=== PATIENT | female | born 1975 | race African-American/Black ===

== ENCOUNTER 2018-03-07 00:27 | Emergency (ER) | payer BC ==
[~2018-03-07] VITALS: Ht 175.3 cm; Wt 108.0 kg
[2018-03-07 00:41] VITALS: BP 171/90
[2018-03-07 01:19] LABS: BASO # 0.1 x10^3/uL (0.0-0.2); BASO % 1 % (0-3); EOS # 0.2 x10^3/uL (0.0-0.7); EOS % 2 % (0-3); HEMATOCRIT 34.9 % (36.0-47.0); HEMOGLOBIN 11.5 g/dL (12.0-15.5); LYMPH # 3.2 x10^3/uL (1.0-4.8); LYMPH % 29 % (24-48); MEAN CORPUSCULAR HEMOGLOBIN 27 pg (25-35); MEAN CORPUSCULAR HGB CONC 33 g/dL (31-37); MEAN CORPUSCULAR VOLUME 81 fL (79-100); MONO # 0.8 x10^3/uL (0.0-1.1); MONO % 7 % (0-9); NEUT # 6.9 x10^3uL (1.8-7.7); NEUT % 62 % (31-73); PLATELET COUNT 382 x10^3/uL (140-400); RED CELL DISTRIBUTION WIDTH 15.4 % (11.5-14.5); WHITE BLOOD COUNT 11.2 x10^3/uL (4.0-11.0)
[2018-03-07] MEDS ORDERED: ASPIRIN CHEWABLE 81 MG TABLET. PO ONE (01:30)
[2018-03-07 01:32] LABS: CREATININE 0.8 mg/dL (0.6-1.0); GFR 94.3; POTASSIUM 3.5 mmol/L (3.5-5.1)
[2018-03-07 01:37] LABS: ALBUMIN 3.3 g/dL (3.4-5.0); ALBUMIN/GLOBULIN RATIO 0.8 (1.0-1.7); MAGNESIUM 1.8 mg/dL (1.8-2.4); TOTAL BILIRUBIN 0.2 mg/dL (0.2-1.0); TOTAL PROTEIN 7.5 g/dL (6.4-8.2)
[2018-03-07] MEDS ORDERED: IOHEXOL 300 MG/ML 100ML VIAL. IV ONE (03:00)
[2018-03-07] MEDS ORDERED: CONTRAST GIVEN. MC PRN (03:00)
--- NOTE | 2018-03-07 03:45 | RAD ---
INDICATION: cp; Omni 300, 100ml COMPARISON: Chest x-ray from earlier same day TECHNIQUE: Axial CT images obtained through the chest. Intravenous contrast utilized. Angiogram 3D images processed per protocol. One or more of the following individualized dose reduction techniques were utilized for this examination: 1. Automated exposure control; 2. Adjustment of the mA and/or kV according to patient size; 3. Use of iterative reconstruction technique. FINDINGS: Calcified nodules which could be sequela of old granulomatous disease. No evidence of pneumothorax. No definite focal airspace consolidation to suggest pneumonia. Portion of ascending thoracic aorta is obscured by motion. No evidence of aneurysm in the visualized portions. Small pericardial recess fluid. Degenerative changes throughout spine. No embolus in the main pulmonary arteries but more peripheral vessels obscured by motion. IMPRESSION: No embolus in main pulmonary arteries with obscured peripheral vessels secondary to motion. No definite pneumonia. Electronically signed by: Manoj Leiva MD (03/07/2018 3:41 AM) [facility]
[2018-03-07] MEDS ORDERED: TRAM50TA PO (04:19)
[2018-03-07] MEDS ORDERED: AZIT250T PO (04:19)
[2018-03-07] MEDS ORDERED: KETO10TA PO (04:19)
--- NOTE | 2018-03-07 04:19 | PHYS DOC ---
Past Medical History Past Medical History: No Pertinent History Past Surgical History: No Surgical History Alcohol Use: None Drug Use: None Adult General Chief Complaint Chief Complaint: CHEST PAIN HPI HPI Patient is a 42 year old female who presents with complaint of left-sided chest pain and shortness of breath that started last night. Patient indicates the pain is progressively getting worse. She states that at times the pain is like a dull ache and at other times it is sharp and stabbing. She states the pain is worsened with deep breathing. She states that there is no tenderness in her chest. She denies any significant cough. She also denies any fever, nausea or vomiting. Patient states that nothing is improving her symptoms. Review of Systems Review of Systems Constitutional: Denies fever or chills [] Respiratory: Complains of shortness of breath [] Cardiovascular: Complains of chest pain[] GI: Denies abdominal pain, nausea, vomiting or diarrhea [] Musculoskeletal: Denies back pain or joint pain [] All other systems were reviewed and found to be within normal limits, except as documented in this note. Current Medications Current Medications Current Medications Medications (Trade) Dose Ordered Sig/Hermila Start Time Stop Time Status Last Admin Dose Admin Aspirin (Children'S Aspirin) 324 mg 1X ONCE 03/07/18 01:30 03/07/18 01:31 DC 03/07/18 01:26 324 MG Info (CONTRAST GIVEN -- Rx MONITORING) 1 each PRN DAILY PRN 03/07/18 03:00 03/09/18 02:59 Iohexol (Omnipaque 300 Mg/ml) 100 ml 1X ONCE 03/07/18 03:00 03/07/18 03:01 DC 03/07/18 02:54 100 ML Allergies Allergies Allergies Coded Allergies Type Severity Reaction Last Updated Verified No Known Drug Allergies 05/01/13 No Physical Exam Physical Exam Constitutional: Well developed, well nourished, no acute distress, non-toxic appearance. [] HENT: Normocephalic, atraumatic, bilateral external ears normal, oropharynx moist, no oral exudates, nose normal. [] Eyes: PERRLA, EOMI, conjunctiva normal, no discharge. [] Neck: Normal range of motion, no tenderness, supple, no stridor. [] Cardiovascular: Regular rate and rhythm, no murmur [] Lungs & Thorax: Bilateral breath sounds clear to auscultation [] Abdomen: Bowel sounds normal, soft. [] Skin: Warm, dry, no erythema, no rash. [] Extremities: No tenderness, no cyanosis, no clubbing, ROM intact, no edema. [] Neurologic: Alert and oriented X 3, normal motor function, normal sensory function, no focal deficits noted. [] Current Patient Data Vital Signs Vital Signs Date Time Temp Pulse Resp B/P (MAP) Pulse Ox O2 Delivery O2 Flow Rate FiO2 03/07/18 00:41 98.2 84 18 171/90 (117) 99 Room Air 98.2 Lab Values Laboratory Tests Test 03/07/18 01:05 White Blood Count 11.2 x10^3/uL (4.0-11.0) H Red Blood Count 4.30 x10^6/uL (3.50-5.40) Hemoglobin 11.5 g/dL (12.0-15.5) L Hematocrit 34.9 % (36.0-47.0) L Mean Corpuscular Volume 81 fL (79-100) Mean Corpuscular Hemoglobin 27 pg (25-35) Mean Corpuscular Hemoglobin Concent 33 g/dL (31-37) Red Cell Distribution Width 15.4 % (11.5-14.5) H Platelet Count 382 x10^3/uL (140-400) Neutrophils (%) (Auto) 62 % (31-73) Lymphocytes (%) (Auto) 29 % (24-48) Monocytes (%) (Auto) 7 % (0-9) Eosinophils (%) (Auto) 2 % (0-3) Basophils (%) (Auto) 1 % (0-3) Neutrophils # (Auto) 6.9 x10^3uL (1.8-7.7) Lymphocytes # (Auto) 3.2 x10^3/uL (1.0-4.8) Monocytes # (Auto) 0.8 x10^3/uL (0.0-1.1) Eosinophils # (Auto) 0.2 x10^3/uL (0.0-0.7) Basophils # (Auto) 0.1 x10^3/uL (0.0-0.2) D-Dimer (Shannon) 1.59 ug/mlFEU (0.00-0.50) H Sodium Level 141 mmol/L (136-145) Potassium Level 3.5 mmol/L (3.5-5.1) Chloride Level 104 mmol/L (98-107) Carbon Dioxide Level 25 mmol/L (21-32) Anion Gap 12 (6-14) Blood Urea Nitrogen 7 mg/dL (7-20) Creatinine 0.8 mg/dL (0.6-1.0) Estimated GFR (Cockcroft-Gault) 94.3 BUN/Creatinine Ratio 9 (6-20) Glucose Level 96 mg/dL (70-99) Calcium Level 9.0 mg/dL (8.5-10.1) Magnesium Level 1.8 mg/dL (1.8-2.4) Total Bilirubin 0.2 mg/dL (0.2-1.0) Aspartate Amino Transferase (AST) 12 U/L (15-37) L Alanine Aminotransferase (ALT) 16 U/L (14-59) Alkaline Phosphatase 64 U/L (46-116) Troponin I Quantitative < 0.017 ng/mL (0.000-0.055) IV-Ddx-N-Type Natriuretic Peptide 31 pg/mL (0-124) Total Protein 7.5 g/dL (6.4-8.2) Albumin 3.3 g/dL (3.4-5.0) L Albumin/Globulin Ratio 0.8 (1.0-1.7) L Laboratory Tests 03/07/18 01:05 Laboratory Tests 03/07/18 01:05 EKG EKG [] Interpretation Time: EKG demonstrates normal sinus rhythm with rate of 84. Radiology/Procedures Radiology/Procedures [] Impressions: PROCEDURE: CT ANGIOGRAPHY CHEST INDICATION: cp; Omni 300, 100ml COMPARISON: Chest x-ray from earlier same day TECHNIQUE: Axial CT images obtained through the chest. Intravenous contrast utilized. Angiogram 3D images processed per protocol. One or more of the following individualized dose reduction techniques were utilized for this examination: 1. Automated exposure control; 2. Adjustment of the mA and/or kV according to patient size; 3. Use of iterative reconstruction technique. FINDINGS: Calcified nodules which could be sequela of old granulomatous disease. No evidence of pneumothorax. No definite focal airspace consolidation to suggest pneumonia. Portion of ascending thoracic aorta is obscured by motion. No evidence of aneurysm in the visualized portions. Small pericardial recess fluid. Degenerative changes throughout spine. No embolus in the main pulmonary arteries but more peripheral vessels obscured by motion. IMPRESSION: No embolus in main pulmonary arteries with obscured peripheral vessels secondary to motion. No definite pneumonia. Electronically signed by: Manoj Leiva MD (03/07/2018 3:41 AM) [facility] Course & Med Decision Making Course & Med Decision Making Pertinent Labs and Imaging studies reviewed. (See chart for details) [] Dragon Disclaimer Dragon Disclaimer This electronic medical record was generated, in whole or in part, using a voice recognition dictation system. Departure Departure Impression: Primary Impression: Pleurisy Disposition: HOME, SELF-CARE Condition: STABLE Referrals: JANETTE MOSQUEDA (PCP) Patient Instructions: Pleurisy Scripts Ketorolac Tromethamine (KETOROLAC TROMETHAMINE) 10 Mg Tablet 1 TAB PO PRN Q6HRS PRN for PAIN, #20 TAB Prov: JAMES SPRING Jr. DO 03/07/18 Tramadol Hcl (TRAMADOL HCL) 50 Mg Tablet 50 MG PO Q6HRS PRN for PAIN, #12 TAB Prov: JAMES SPRING Jr. DO 03/07/18 Azithromycin (ZITHROMAX) 250 Mg Tablet 1 PKG PO UD, #6 TAB Prov: JAMES SPRING Jr. DO 03/07/18 JAMES SPRING Jr. DO Mar 07, 2018 04:19
--- NOTE | 2018-03-07 06:23 | EKG ---
[facility] [address] [place] [address] Test Date: 2018-03-07 Test Time: 00:55:23 Pat Name: CRYSTAL DEMPSEY Department: Room: Gender: F Chef French: : 1975 Requested By: JAMES SPRING Order Number: [id number] Reading MD: Measurements Intervals [place] Rate: 84 P: 51 MA: 152 QRS: -17 QRSD: 76 T: -9 QT: 358 QTc: 426 Interpretive Statements SINUS RHYTHM LEFT ATRIAL ABNORMALITY LEFTWARD AXIS ABNORMAL ECG RI6.01 No previous ECG available for comparison
--- NOTE | 2018-03-07 07:49 | RAD ---
Portable chest, 03/07/2018: HISTORY: Chest pain The left ventricle is mildly prominent. The pulmonary vascularity is normal. No pulmonary infiltrate is seen. There is no evidence of pleural fluid. IMPRESSION: No acute cardiopulmonary abnormality is detected. Electronically signed by: Ronni Hernández MD (03/07/2018 7:45 AM) [facility]
== END 2018-03-07 04:49 | disposition home or self-care (01) ==
LOC: ER 00:27
DX: R09.1 Pleurisy (principal)
CPT/HCPCS: 36415; 71045; 71275; 80053; 83735; 83880; 84484; 85025; 85379; 93005; 99284; Q9967